=== PATIENT | female | born 1990 | race Caucasian/White ===

== ENCOUNTER 2018-06-16 22:32 | Inpatient (IN) | payer OTHER ==
[2018-06-16] MEDS ORDERED: Acetaminophen 325 MG Tab PO PRN (23:15)
[2018-06-16] MEDS ORDERED: Sodium Chloride 0.9% 10 ML Syringe FLUSH PRN (23:21)
[2018-06-16] MEDS ORDERED: Ondansetron 4 MG/2 ML SDV IVPUSH PRN (23:21)
[2018-06-16] MEDS ORDERED: Ampicillin 2 GM in Sodium Chloride 0.9% 100 ML IV ONE (23:21)
[2018-06-16] MEDS ORDERED: Nalbuphine 20 MG/ML 1 ML Syringe IVPUSH PRN (23:21)
[2018-06-16] MEDS ORDERED: Oxytocin/Lactated Ringers 10 UNIT/1,000 ML BAG IV SCH ×2 (23:30)
[2018-06-17] MEDS: Lactated Ringers 1,000 ML IV SCH ×3 (01:15→07:45)
[2018-06-17] MEDS ORDERED: Ampicillin 1 GM in Sodium Chloride 0.9% 100 ML IV SCH ×2 (03:30→09:30)
[2018-06-17] MEDS ORDERED: ePHEDrine 50 MG/ML SDV IVPUSH PRN (05:38)
[2018-06-17] MEDS ORDERED: diphenhydrAMINE 50 MG/ML SDV IVPUSH PRN (05:38)
[2018-06-17] MEDS ORDERED: fentaNYL 100 MCG/2 ML SDV EPIDUR PRN (05:38)
[2018-06-17] MEDS ORDERED: fentaNYL/Bupivacaine-NS 2 MCG/ML-0.125%/PF 100 ML Bag EP SCH (05:45)
--- NOTE | 2018-06-17 05:47 | PCM.PREANE ---
Preanesthetic Assessment - Procedure Proposed Procedure: janie - Anesthesia/Transfusion/Family Hx Anesthesia History: Prior Anesthesia Without Reaction Family History of Anesthesia Reaction: No Transfusion History: No Prior Transfusion(s) - Review of Systems General: No Symptoms Pulmonary: No Symptoms Cardiovascular: No Symptoms Gastrointestinal: No Symptoms Neurological: No Symptoms Other: Reports: None - Physical Assessment O2 Sat by Pulse Oximetry: 100 Respiratory Rate: 15 Vital Signs: Last Vital Signs Temp 97.8 F 06/16/18 23:21 Pulse 73 06/16/18 23:21 Resp 15 06/16/18 23:21 BP 137/90 06/16/18 23:21 Pulse Ox 100 06/16/18 23:21 Height: 5 ft 9 in Weight: 107.955 kg ASA Class: 2 Mental Status: Alert & Oriented x3 Airway Class: Mallampati = 1 Dentition: Reports: Normal Dentition Thyro-Mental Finger Breadths: 3 Mouth Opening Finger Breadths: 3 ROM/Head Extension: Full Lungs: Clear to Auscultation, Normal Respiratory Effort Cardiovascular: Regular Rate, Regular Rhythm - Lab Values: Laboratory Last Values WBC 11.28 K/mm3 (3.98-10.04) H 06/16/18 23:45 RBC 3.82 M/mm3 (3.98-5.22) L 06/16/18 23:45 Hgb 11.6 gm/L (11.2-15.7) 06/16/18 23:45 Hct 35.5 % (34.1-44.9) 06/16/18 23:45 MCV 92.9 fl (79.4-94.8) 06/16/18 23:45 MCH 30.4 pg (25.6-32.2) 06/16/18 23:45 MCHC 32.7 g/dl (32.2-35.5) 06/16/18 23:45 RDW Std Deviation 43.5 fL (36.4-46.3) 06/16/18 23:45 Plt Count 301 K/mm3 (182-369) 06/16/18 23:45 MPV 9.1 fl (9.4-12.3) L 06/16/18 23:45 Neut % (Auto) 69.4 % (34.0-71.1) 06/16/18 23:45 Lymph % (Auto) 21.5 % (19.3-51.7) 06/16/18 23:45 [place] % (Auto) 8.4 % (4.7-12.5) 06/16/18 23:45 Eos % (Auto) 0.3 (0.7-5.8) L 06/16/18 23:45 Baso % (Auto) 0.2 % (0.1-1.2) 06/16/18 23:45 Neut # (Auto) 7.84 K/mm3 (1.56-6.13) H 06/16/18 23:45 Lymph # (Auto) 2.42 K/mm3 (1.18-3.74) 06/16/18 23:45 [place] # (Auto) 0.95 K/mm3 (0.24-0.36) H 06/16/18 23:45 Eos # (Auto) 0.03 K/mm3 (0.04-0.36) L 06/16/18 23:45 Baso # (Auto) 0.02 K/mm3 (0.01-0.08) 06/16/18 23:45 Sodium 138 mEq/L (136-145) 06/16/18 23:45 Potassium 4.0 mEq/L (3.5-5.1) 06/16/18 23:45 Chloride 104 mEq/L (98-107) 06/16/18 23:45 Carbon Dioxide 23 mEq/L (21-32) 06/16/18 23:45 Anion Gap 15.0 (5-15) 06/16/18 23:45 BUN 16 mg/dL (7-18) 06/16/18 23:45 Creatinine 0.7 mg/dL (0.55-1.02) 06/16/18 23:45 Est Cr Clr Drug Dosing 125.04 mL/min 06/16/18 23:45 Estimated GFR (MDRD) > 60 mL/min (>60) 06/16/18 23:45 BUN/Creatinine Ratio 22.9 (14-18) H 06/16/18 23:45 Glucose 92 mg/dL (74-106) 06/16/18 23:45 Calcium 9.1 mg/dL (8.5-10.1) 06/16/18 23:45 Total Bilirubin 0.2 mg/dL (0.2-1.0) 06/16/18 23:45 AST 13 U/L (15-37) L 06/16/18 23:45 ALT 22 U/L (14-59) 06/16/18 23:45 Alkaline Phosphatase 139 U/L (46-116) H 06/16/18 23:45 Total Protein 6.9 g/dl (6.4-8.2) 06/16/18 23:45 Albumin 2.9 g/dl (3.4-5.0) L 06/16/18 23:45 Globulin 4.0 gm/dL 06/16/18 23:45 Albumin/Globulin Ratio 0.7 (1-2) L 06/16/18 23:45 - Allergies Allergies/Adverse Reactions: Allergies Allergy/AdvReac Type Severity Reaction Status Date / Time No Known Allergies Allergy Verified 10/03/15 22:09 - Blood Blood Available: No - Acknowledgements Anesthesia Type Planned: Epidural Pt an Appropriate Candidate for the Planned Anesthesia: Yes Alternatives and Risks of Anesthesia Discussed w Pt/Guardian: Yes Pt/Guardian Understands and Agrees with Anesthesia Plan: Yes PreAnesthesia Questionnaire HEENT History: Reports: None Cardiovascular History: Reports: Other (See Below) Other Cardiovascular History: Mitral Valve prolapse, mild by history. Per Dr. Mcguire evaluation, the prolapse is so mild as to not be visible. Pt advised that no special care is required for this relative to her , labor or her delivery, per pt's understanding from Dr. Hahn. 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 Neurological History: Reports: Other (See Below) (headaches at start of preg and and near end) - Past Surgical History HEENT Surgical History: Reports: Oral Surgery, Tonsillectomy Cardiovascular Surgical History: Reports: None - History Comment History Comment: vits and tylenol prn - SUBSTANCE USE Smoking Status *Q: Never Smoker Tobacco Use Within Last Twelve Months: No Second Hand Smoke Exposure: No Days Per Week of Alcohol Use: 0 Recreational Drug Use History: No - CURRENT (IN HOUSE) MEDS Current Meds: Current Medications Diphenhydramine HCl (Benadryl) 25 mg IVPUSH Q6H PRN PRN Reason: pruritis Ephedrine Sulfate (Ephedrine Sulfate) 5 mg IVPUSH ASDIRECTED PRN PRN Reason: Hypotension Fentanyl (Sublimaze) 100 mcg EPIDUR Q3H PRN PRN Reason: Pain Fentanyl/Bupivacaine HCl (Txwekusf-Oakdh-Be 2 Mcg/Ml-0.125%) 100 ml EP ASDIRECTED FELIPE Ampicillin Sodium 1 gm/ Sodium (Chloride) 100 mls @ 200 mls/hr IV Q4H FELIPE Last Admin: 06/17/18 05:30 Dose: 200 mls/hr Lactated Ringer's (Ringers, Lactated) 1,000 mls @ 100 mls/hr IV ASDIRECTED FELIPE Last Infusion: 06/17/18 05:20 Dose: 999 mls/hr Oxytocin/Lactated Ringer's (Pitocin In Lr 10 Units/1,000 Ml) 10 unit in 1,000 mls @ 12 mls/hr IV TITRATE FELIPE; Protocol Last Titration: 06/17/18 04:00 Dose: 8 munits/min, 48 mls/hr Oxytocin/Lactated Ringer's (Pitocin In Lr 10 Units/1,000 Ml) 10 unit in 1,000 mls @ 500 mls/hr IV .CONTINUOUS FELIPE Nalbuphine HCl (Nubain) 10 mg IVPUSH Q2H PRN PRN Reason: pain Ondansetron HCl (Zofran) 4 mg IVPUSH Q4H PRN PRN Reason: Nausea/Vomiting Sodium Chloride (Saline Flush) 10 ml FLUSH ASDIRECTED PRN PRN Reason: Keep Vein Open Discontinued Medications Ampicillin Sodium 2 gm/ Sodium (Chloride) 100 mls @ 200 mls/hr IV ONETIME ONE Stop: 06/16/18 23:50 Last Admin: 06/17/18 01:30 Dose: 200 mls/hr
--- NOTE | 2018-06-17 08:20 | PCM.LDHP ---
L&D History of Present Illness - General Date of Service: 06/17/18 Admit Problem/Dx: Patient Status Order with Admit Dx/Problem 06/16/18 23:21 Patient Status [ADT] Routine Admission Diagnosis/Problem Admission Diagnosis/Problem Source of Information: Patient History Limitations: Reports: No Limitations - History of Present Illness Introduction:: Josephine Jones is a 27-year-old 40 weeks 1 day ([facility] 06/16/2018) by early ultrasound who presented with spontaneous rupture membranes at home. She reports that she had a large gush of clear fluid at approximately 9 PM last evening. She denies any significant vaginal bleeding or other discharge. She denies any contractions but was having some occasional cramping when she was traveling from home to the hospital. She reports that she's been feeling good movement. Timing/Duration: Reports: sudden onset (Large gush of fluid at 9 PM on 06/16/2018 ), intermittent (Cramping episodes) Location, : Reports: Lower back, Pelvic Quality: Reports: Ache Severity: Mild Pain Score: 0 Improves with: Reports: None Worsens with: Reports: None Associated Symptoms: Reports: vaginal fluid, large amount. Denies: vaginal bleeding, vaginal discharge Present Illness Comments:: Josephine Jones is a 27-year-old at 40 weeks 1 day ([facility] 06/16/2018) with spontaneous rupture membranes at home. Her has been overall and called complicated. She has had routine care since [address] Hahn. labs Blood type: O+ Antibody screen: Negative First trimester hematocrit/hemoglobin: 40.1/13.9 on 11/23/2017 Platelets: 309 Rubella status: Equivocal Hepatitis B surface antigen: Negative RPR: Negative HIV: Negative Gonorrhea: Negative Chlamydia: Negative Anatomy ultrasound: Grossly normal anatomy ultrasound with initial ultrasound showing posterior with partial versus complete previa, moved to 1.9 cm from cervical os at 1 month later and repeat 1 month after that was at 2.7 cm from the cervical os One hour glucose tolerance test: 108 Second trimester hematocrit/hemoglobin: 36.0/12.1 on 03/13/2018 Platelets: 301 GBS status: Positive Repeat hematocrit and hemoglobin in third trimester: 39.2/12.9 on 06/05/2018 Platelets: 301 complicated by: * GBS positive status, no allergies and should be given antibiotics in labor * Rubella equivocal status and should be offered MMR vaccine after delivery * History of anxiety and depression and not currently on medications, would like to start on medications after delivery * History of mitral valve prolapse with no significant evidence of disease with echocardiogram done in - Related Data Allergies/Adverse Reactions: Allergies Allergy/AdvReac Type Severity Reaction Status Date / Time No Known Allergies Allergy Verified 10/03/15 22:09 Past Medical History HEENT History: Reports: None Cardiovascular History: Reports: Other (See Below) Other Cardiovascular History: Mitral Valve prolapse, mild by history. Per Dr. Mcguire evaluation, the prolapse is so mild as to not be visible. Pt advised that no special care is required for this relative to her , labor or her delivery, per pt's understanding from Dr. Hahn. 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 Neurological History: Reports: Other (See Below) (headaches at start of preg and and near end) Psychiatric History: Reports: Anxiety, Depression - Past Surgical History HEENT Surgical History: Reports: Oral Surgery, Tonsillectomy Cardiovascular Surgical History: Reports: None - History Comment History Comment: vits and tylenol prn Social & Family History - Family History Family Medical History: Noncontributory - Tobacco Use Smoking Status *Q: Never Smoker Second Hand Smoke Exposure: No - Tobacco Core Measures Tobacco Use/Smoking Within Last 30 Days: No Smokeless Tobacco Use in Last 30 Days: No - Caffeine Use Caffeine Use: Reports: Coffee - Alcohol Use Days Per Week of Alcohol Use: 0 - Recreational Drug Use Recreational Drug Use: No - Living Situation & Occupation Living situation: Reports: , with Spouse Occupation: Employed H&P Review of Systems - Review of Systems: Review Of Systems: See Below General: Denies: Fever, Chills HEENT: Denies: Post Nasal Drip, Sinus Congestion, Sore Throat, Visual Changes Pulmonary: Denies: Shortness of Breath, Cough Cardiovascular: Denies: Chest Pain, Palpitations Gastrointestinal: Denies: Abdominal Pain, Constipation, Diarrhea, Nausea, Vomiting Genitourinary: Denies: Dysuria, Frequency, Burning, Pain, Urgency Musculoskeletal: Reports: Back Pain (And hip pain of ) Skin: Denies: Rash, Lesions Psychiatric: Reports: Depression (History of, no active symptoms), Anxiety ( History of, no active symptoms) Neurological: Reports: Headache (Occasional headaches when she is getting minimal sleep) L&D Exam - Exam Exam: See Below - Vital Signs Vital Signs: Last Vital Signs Temp 36.6 C 06/16/18 23:21 Pulse 73 06/16/18 23:21 Resp 15 06/17/18 05:46 BP 137/90 06/16/18 23:21 Pulse Ox 100 06/17/18 05:46 Weight: 107.955 kg - OB Specific Contraction Duration (sec): 60-75 Contraction Frequency (min): 2-5 Contraction Intensity: Moderate Movement: Active Heart Tones: Present Heart Tones per Min: 120 (+15 x 15 accelerations, intermittent early decelerations) Presentation: Vertex Estimated Weight: 7.5-8 pounds by Fabio's - Gonzalez Score Gonzalez Score Cervix Position: Midposition Gonzalez Score Consistency: Soft Gonzalez Score Effacement: >80% (100%) Gonzalez Score Dilation: 3-4 cm (4 cm) Gonzalez Score Infant's Station: -2 Gonzalez Score Total: 9 - Exam General: Alert, Oriented HEENT: Conjunctiva Clear, EOMI Neck: Supple, Trachea Midline Lungs: Clear to Auscultation, Normal Respiratory Effort Cardiovascular: Regular Rate, Regular Rhythm GI/Abdominal Exam: Soft, Non-Tender, No Distention, Other (gravid). No: Guarding, Rigid, Rebound Genitourinary: Normal external exam Extremities: No Pedal Edema Skin: Warm, Dry, Intact Psychiatric: Alert, Normal Affect, Normal Mood - Patient Data Lab Results Last 24 hrs: Laboratory Results - last 24 hr 06/16/18 06/16/18 06/17/18 Range/Units 23:45 23:45 07:20 WBC 11.28 H (3.98-10.04) K/mm3 RBC 3.82 L (3.98-5.22) M/mm3 Hgb 11.6 (11.2-15.7) gm/L Hct 35.5 (34.1-44.9) % MCV 92.9 (79.4-94.8) fl MCH 30.4 (25.6-32.2) pg MCHC 32.7 (32.2-35.5) g/dl RDW Std Deviation 43.5 (36.4-46.3) fL Plt Count 301 (182-369) K/mm3 MPV 9.1 L (9.4-12.3) fl Neut % (Auto) 69.4 (34.0-71.1) % Lymph % (Auto) 21.5 (19.3-51.7) % [place] % (Auto) 8.4 (4.7-12.5) % Eos % (Auto) 0.3 L (0.7-5.8) Baso % (Auto) 0.2 (0.1-1.2) % Neut # (Auto) 7.84 H (1.56-6.13) K/mm3 Lymph # (Auto) 2.42 (1.18-3.74) K/mm3 [place] # (Auto) 0.95 H (0.24-0.36) K/mm3 Eos # (Auto) 0.03 L (0.04-0.36) K/mm3 Baso # (Auto) 0.02 (0.01-0.08) K/mm3 Sodium 138 (136-145) mEq/L Potassium 4.0 (3.5-5.1) mEq/L Chloride 104 (98-107) mEq/L Carbon Dioxide 23 (21-32) mEq/L Anion Gap 15.0 (5-15) BUN 16 (7-18) mg/dL Creatinine 0.7 (0.55-1.02) mg/dL Est Cr Clr Drug Dosing 125.04 mL/min Estimated GFR (MDRD) > 60 (>60) mL/min BUN/Creatinine Ratio 22.9 H (14-18) Glucose 92 (74-106) mg/dL Calcium 9.1 (8.5-10.1) mg/dL Total Bilirubin 0.2 (0.2-1.0) mg/dL AST 13 L (15-37) U/L ALT 22 (14-59) U/L Alkaline Phosphatase 139 H (46-116) U/L Total Protein 6.9 (6.4-8.2) g/dl Albumin 2.9 L (3.4-5.0) g/dl Globulin 4.0 gm/dL Albumin/Globulin Ratio 0.7 L (1-2) Ur Random Creatinine 83.7 (30.0-125.0) mg/dL U Random Total Protein 17.9 H (0.0-11.8) mg/dL Protein/Creatinin Ratio 213.9 H (0-149) mg/g Result Diagrams: 06/16/18 23:45 06/16/18 23:45 - Problem List (1) 40 weeks gestation of SNOMED Code(s): 72798020 ICD Code: Z3A.40 - 40 WEEKS GESTATION OF Status: Acute Current Visit: Yes (2) GBS (group B Streptococcus carrier), +RV culture, currently SNOMED Code(s): 5529217981468, 228522321, 7478615913231 ICD Code: O99.820 - STREPTOCOCCUS B CARRIER STATE COMPLICATING Status: Acute Current Visit: Yes (3) Rubella non-immune status, antepartum SNOMED Code(s): 927985341 ICD Code: O99.89 - OTH DISEASES AND CONDITIONS COMPL PREG/CHLDBRTH; Z28.3 - UNDERIMMUNIZATION STATUS Status: Acute Current Visit: Yes (4) Anxiety SNOMED Code(s): 08465251 ICD Code: F41.9 - ANXIETY DISORDER, UNSPECIFIED Status: Acute Current Visit: Yes (5) Depression SNOMED Code(s): 79326332 ICD Code: F32.9 - MAJOR DEPRESSIVE DISORDER, SINGLE EPISODE, UNSPECIFIED Status: Acute Current Visit: Yes (6) Mitral valve prolapse of mother during SNOMED Code(s): 755701411 ICD Code: O99.419 - DISEASES OF THE CIRC SYS COMP , UNSP TRIMESTER; I34.1 - NONRHEUMATIC MITRAL (VALVE) PROLAPSE Status: Acute Current Visit: Yes Problem List Initiated/Reviewed/Updated: Yes Orders Last 24hrs: Active Orders 24 hr Category Date Time Status Patient Status [ADT] Routine ADT 06/16/18 23:21 Active Activity as Tolerated [RC] PFP Care 06/16/18 23:21 Active Communication Order [RC] ASDIRECTED Care 06/16/18 23:21 Active Heart Tones [RC] ASDIRECTED Care 06/16/18 23:25 Active Notify Provider [RC] ASDIRECTED Care 06/17/18 05:38 Active Notify Provider [RC] PFP Care 06/16/18 23:21 Active Notify Provider [RC] PRN Care 06/16/18 23:21 Active Peripheral IV Care [RC] . DIRECTED Care 06/16/18 23:25 Active Vital Signs [RC] 09,15,21,03 Care 06/16/18 23:21 Active Regular Diet [DIET] Diet 06/17/18 Breakfast Active RAPID PLASMA REAGIN,RPR [CHEM] Routine Lab 06/16/18 23:45 Received Acetaminophen [Tylenol] Med 06/16/18 23:15 Active 650 mg PO Q4H PRN Ampicillin 1 gm Med 06/17/18 09:30 Active Sodium Chloride 0.9% [Normal Saline] 100 ml IV Q4H Lactated Ringers [Ringers, Lactated] 1,000 ml Med 06/16/18 23:30 Active IV ASDIRECTED Nalbuphine [Nubain] Med 06/16/18 23:21 Active 10 mg IVPUSH Q2H PRN Ondansetron [Zofran] Med 06/16/18 23:21 Active 4 mg IVPUSH Q4H PRN Oxytocin/Lactated Ringers [Pitocin in LR 10 Units/1,000 Med 06/16/18 23:30 Active ML] 10 unit in 1,000 ml IV .CONTINUOUS Oxytocin/Lactated Ringers [Pitocin in LR 10 Units/1,000 Med 06/16/18 23:30 Active ML] 10 unit in 1,000 ml IV TITRATE Sodium Chloride 0.9% [Saline Flush] Med 06/16/18 23:21 Active 10 ml FLUSH ASDIRECTED PRN diphenhydrAMINE [Benadryl] Med 06/17/18 05:38 Active 25 mg IVPUSH Q6H PRN ePHEDrine [ePHEDrine sulfate] Med 06/17/18 05:38 Active 5 mg IVPUSH ASDIRECTED PRN fentaNYL [Sublimaze] Med 06/17/18 05:38 Active 100 mcg EPIDUR Q3H PRN fentaNYL/Bupivacaine/NS/PF [lyqtiPIH-[id number]-VK 2 MCG/ML- Med 06/17/18 05:45 Active 0.125%] 100 ml EP ASDIRECTED Electronic Heart Tones Ext w TOCO [WOMSER] Oth 06/16/18 23:21 Ordered Routine Electronic Heart Tones Internal [WOMSER] Per Unit Oth 06/16/18 23:21 Ordered Routine Peripheral IV Insertion Adult [OM.PC] Routine Oth 06/16/18 23:21 Ordered Resuscitation Status Routine Resus Stat 06/16/18 23:21 Ordered Medication Orders Acetaminophen (Tylenol) 650 mg PO Q4H PRN PRN Reason: Pain (mild 1-3) Last Admin: 06/17/18 06:28 Dose: 650 mg Diphenhydramine HCl (Benadryl) 25 mg IVPUSH Q6H PRN PRN Reason: pruritis Ephedrine Sulfate (Ephedrine Sulfate) 5 mg IVPUSH ASDIRECTED PRN PRN Reason: Hypotension Fentanyl (Sublimaze) 100 mcg EPIDUR Q3H PRN PRN Reason: Pain Last Admin: 06/17/18 05:48 Dose: 100 mcg Fentanyl/Bupivacaine HCl (Nkbbkfpy-Kkmeb-Ke 2 Mcg/Ml-0.125%) 100 ml EP ASDIRECTED FELIPE Last Admin: 06/17/18 05:48 Dose: 100 ml Lactated Ringer's (Ringers, Lactated) 1,000 mls @ 100 mls/hr IV ASDIRECTED FELIPE Last Admin: 06/17/18 07:45 Dose: 100 mls/hr Infusion: 06/17/18 06:57 Dose: 999 mls/hr Admin: 06/17/18 05:56 Dose: 999 mls/hr Infusion: 06/17/18 05:56 Dose: 999 mls/hr Infusion: 06/17/18 05:20 Dose: 999 mls/hr Admin: 06/17/18 01:15 Dose: 100 mls/hr Oxytocin/Lactated Ringer's (Pitocin In Lr 10 Units/1,000 Ml) 10 unit in 1,000 mls @ 12 mls/hr IV TITRATE FELIPE; Protocol Last Titration: 06/17/18 07:35 Dose: 10 munits/min, 60 mls/hr Titration: 06/17/18 04:00 Dose: 8 munits/min, 48 mls/hr Titration: 06/17/18 03:21 Dose: 6 munits/min, 36 mls/hr Titration: 06/17/18 02:42 Dose: 4 munits/min, 24 mls/hr Admin: 06/17/18 02:08 Dose: 2 munits/min, 12 mls/hr Oxytocin/Lactated Ringer's (Pitocin In Lr 10 Units/1,000 Ml) 10 unit in 1,000 mls @ 500 mls/hr IV .CONTINUOUS FELIPE Ampicillin Sodium 1 gm/ Sodium (Chloride) 100 mls @ 200 mls/hr IV Q4H FELIPE Nalbuphine HCl (Nubain) 10 mg IVPUSH Q2H PRN PRN Reason: pain Ondansetron HCl (Zofran) 4 mg IVPUSH Q4H PRN PRN Reason: Nausea/Vomiting Sodium Chloride (Saline Flush) 10 ml FLUSH ASDIRECTED PRN PRN Reason: Keep Vein Open Assessment/Plan Comment:: Refer to observation for spontaneous rupture of membranes Continue Pitocin for augmentation of labor Continuous monitoring Place IV and have Lactated Ringer's at 125 ml/hr May have small amounts of regular diet Activity as tolerated Patient with epidural placed this morning Plans to breast-feed after delivery Patient on ampicillin 2 g on admission and given 1 g every 4 hours after for GBS prophylaxis Anticipate vaginal delivery unless otherwise indicated Markos Sahu M.D. 9:00 AM 06/17/2018
--- NOTE | 2018-06-17 09:05 | PCM.DEL ---
L & D Note - General Info Date of Service: 06/17/18 Mother's Due Date: 06/16/18 - Delivery Note Labor: Augmented by Oxytocin Delivery Outcome: Livebirth Infant Delivery Method: Spontaneous Vaginal Delivery-Single Presentation: Left Occiput Anterior (CORAL) Nuchal Cord: None Anesthesia Type: Epidural Amniotic Fluid Description: Clear Episiotomy Type: None Laceration: 2nd Degree, Perineal (midline, repaired) Suture type: Vicryl Suture size: 3-0 Placenta: Intact, Spontaneous Cord: 3 Vessels Estimated Blood Loss: 200 Resuscitation Needed: No [place]: Bulb Syringe, Stimulated, Warmed, [place] Used Provider: Markos Sahu Score 1 min: 8 Score 5 min: 9 Delivery Comments (Free Text/Narrative):: Stage I: Josephine Jones was admitted for spontaneous rupture membranes with clear fluid. On admission her cervix was dilated to 1 cm. She was GBS positive and was started on ampicillin for GBS prophylaxis and received a total of 2 doses prior to delivery. She was not having any contractions on admission and was started on Pitocin for augmentation of labor. She was given an epidural for anesthesia. In the morning of hospital day #2 her cervix was examined and she was 4 cm and continued on Pitocin for augmentation of labor. She quickly progressed from 4 cm to complete Stage II: On 06/17/2018 she had a normal vaginal delivery of a live female at 0832. Apgars of 8 & 9. Weight of 3120 g (6 lbs 14 oz). Length of 20.5 inches. There was no nuchal cord. Infant was delivered in CORAL position. The cord was doubly clamped and cut by father of the . Infant was placed on mother's abdomen. Stage III: She had a spontaneous delivery of an intact placenta in [place] presentation. Three vessel cord. She was given pitocin and fundal massage. She had a second-degree midline perineal laceration is repaired with 3-0 Vicryl. Mom and baby were stable to recovery. EBL of 200 mL. Markos Sahu MD 9:04 AM 06/17/2018 - General Info Date of Service: 06/17/18 - Patient Data Vitals - Most Recent: Last Vital Signs Temp 36.6 C 06/16/18 23:21 Pulse 73 06/16/18 23:21 Resp 15 06/17/18 05:46 BP 137/90 06/16/18 23:21 Pulse Ox 100 06/17/18 05:46 Weight - Most Recent: 107.955 kg I&O - Last 24 Hours: Intake & Output 06/16/18 06/17/18 06/17/18 22:59 06:59 14:59 Intake Total 2350 Output Total 400 Balance 1950 Lab Results Last 24 Hours: Laboratory Results - last 24 hr 06/16/18 06/16/18 06/17/18 Range/Units 23:45 23:45 07:20 WBC 11.28 H (3.98-10.04) K/mm3 RBC 3.82 L (3.98-5.22) M/mm3 Hgb 11.6 (11.2-15.7) gm/L Hct 35.5 (34.1-44.9) % MCV 92.9 (79.4-94.8) fl MCH 30.4 (25.6-32.2) pg MCHC 32.7 (32.2-35.5) g/dl RDW Std Deviation 43.5 (36.4-46.3) fL Plt Count 301 (182-369) K/mm3 MPV 9.1 L (9.4-12.3) fl Neut % (Auto) 69.4 (34.0-71.1) % Lymph % (Auto) 21.5 (19.3-51.7) % [place] % (Auto) 8.4 (4.7-12.5) % Eos % (Auto) 0.3 L (0.7-5.8) Baso % (Auto) 0.2 (0.1-1.2) % Neut # (Auto) 7.84 H (1.56-6.13) K/mm3 Lymph # (Auto) 2.42 (1.18-3.74) K/mm3 [place] # (Auto) 0.95 H (0.24-0.36) K/mm3 Eos # (Auto) 0.03 L (0.04-0.36) K/mm3 Baso # (Auto) 0.02 (0.01-0.08) K/mm3 Sodium 138 (136-145) mEq/L Potassium 4.0 (3.5-5.1) mEq/L Chloride 104 (98-107) mEq/L Carbon Dioxide 23 (21-32) mEq/L Anion Gap 15.0 (5-15) BUN 16 (7-18) mg/dL Creatinine 0.7 (0.55-1.02) mg/dL Est Cr Clr Drug Dosing 125.04 mL/min Estimated GFR (MDRD) > 60 (>60) mL/min BUN/Creatinine Ratio 22.9 H (14-18) Glucose 92 (74-106) mg/dL Calcium 9.1 (8.5-10.1) mg/dL Total Bilirubin 0.2 (0.2-1.0) mg/dL AST 13 L (15-37) U/L ALT 22 (14-59) U/L Alkaline Phosphatase 139 H (46-116) U/L Total Protein 6.9 (6.4-8.2) g/dl Albumin 2.9 L (3.4-5.0) g/dl Globulin 4.0 gm/dL Albumin/Globulin Ratio 0.7 L (1-2) Ur Random Creatinine 83.7 (30.0-125.0) mg/dL U Random Total Protein 17.9 H (0.0-11.8) mg/dL Protein/Creatinin Ratio 213.9 H (0-149) mg/g Med Orders - Current: Current Medications Acetaminophen (Tylenol) 650 mg PO Q4H PRN PRN Reason: Pain (mild 1-3) Last Admin: 06/17/18 06:28 Dose: 650 mg Diphenhydramine HCl (Benadryl) 25 mg IVPUSH Q6H PRN PRN Reason: pruritis Ephedrine Sulfate (Ephedrine Sulfate) 5 mg IVPUSH ASDIRECTED PRN PRN Reason: Hypotension Fentanyl (Sublimaze) 100 mcg EPIDUR Q3H PRN PRN Reason: Pain Last Admin: 06/17/18 05:48 Dose: 100 mcg Fentanyl/Bupivacaine HCl (Ngcoyeoz-Lvehx-Xs 2 Mcg/Ml-0.125%) 100 ml EP ASDIRECTED [facility] Last Admin: 06/17/18 05:48 Dose: 100 ml Lactated Ringer's (Ringers, Lactated) 1,000 mls @ 100 mls/hr IV ASDIRECTED [facility] Last Admin: 06/17/18 07:45 Dose: 100 mls/hr Oxytocin/Lactated Ringer's (Pitocin In Lr 10 Units/1,000 Ml) 10 unit in 1,000 mls @ 12 mls/hr IV TITRATE FELIPE; Protocol Last Titration: 06/17/18 08:34 Dose: 500 mls/hr Oxytocin/Lactated Ringer's (Pitocin In Lr 10 Units/1,000 Ml) 10 unit in 1,000 mls @ 500 mls/hr IV .CONTINUOUS FELIPE Ampicillin Sodium 1 gm/ Sodium (Chloride) 100 mls @ 200 mls/hr IV Q4H FELIPE Nalbuphine HCl (Nubain) 10 mg IVPUSH Q2H PRN PRN Reason: pain Ondansetron HCl (Zofran) 4 mg IVPUSH Q4H PRN PRN Reason: Nausea/Vomiting Sodium Chloride (Saline Flush) 10 ml FLUSH ASDIRECTED PRN PRN Reason: Keep Vein Open Discontinued Medications Ampicillin Sodium 2 gm/ Sodium (Chloride) 100 mls @ 200 mls/hr IV ONETIME ONE Stop: 06/16/18 23:50 Last Admin: 06/17/18 01:30 Dose: 200 mls/hr Ampicillin Sodium 1 gm/ Sodium (Chloride) 100 mls @ 200 mls/hr IV Q4H FELIPE Last Admin: 06/17/18 05:30 Dose: 200 mls/hr - Problem List & Annotations (1) 40 weeks gestation of SNOMED Code(s): 56814602 Code(s): Z3A.40 - 40 WEEKS GESTATION OF Status: Acute Current Visit: Yes (2) GBS (group B Streptococcus carrier), +RV culture, currently SNOMED Code(s): 0509685306447, 931175495, 5029139567577 Code(s): O99.820 - STREPTOCOCCUS B CARRIER STATE COMPLICATING Status: Acute Current Visit: Yes (3) Rubella non-immune status, antepartum SNOMED Code(s): 531459671 Code(s): O99.89 - OTH DISEASES AND CONDITIONS COMPL PREG/CHLDBRTH; Z28.3 - UNDERIMMUNIZATION STATUS Status: Acute Current Visit: Yes (4) Anxiety SNOMED Code(s): 20741769 Code(s): F41.9 - ANXIETY DISORDER, UNSPECIFIED Status: Acute Current Visit: Yes (5) Depression SNOMED Code(s): 81726063 Code(s): F32.9 - MAJOR DEPRESSIVE DISORDER, SINGLE EPISODE, UNSPECIFIED Status: Acute Current Visit: Yes (6) Mitral valve prolapse of mother during SNOMED Code(s): 124250772 Code(s): O99.419 - DISEASES OF THE CIRC SYS COMP , UNSP TRIMESTER; I34.1 - NONRHEUMATIC MITRAL (VALVE) PROLAPSE Status: Acute Current Visit: Yes (7) Vaginal delivery SNOMED Code(s): 075884089 Code(s): O80 - ENCOUNTER FOR FULL-TERM UNCOMPLICATED DELIVERY Status: Acute Current Visit: Yes (8) Second degree perineal laceration during delivery SNOMED Code(s): 6618668 Code(s): O70.1 - SECOND DEGREE PERINEAL LACERATION DURING DELIVERY Status: Acute Current Visit: Yes - Problem List Review Problem List Initiated/Reviewed/Updated: Yes - My Orders Last 24 Hours: My Active Orders 06/16/18 23:15 Acetaminophen [Tylenol] 650 mg PO Q4H PRN 06/16/18 23:21 Patient Status [ADT] Routine Activity as Tolerated [RC] PFP Communication Order [RC] ASDIRECTED Notify Provider [RC] PFP Notify Provider [RC] PRN Vital Signs [RC] 09,15,21,03 Nalbuphine [Nubain] 10 mg IVPUSH Q2H PRN Ondansetron [Zofran] 4 mg IVPUSH Q4H PRN Sodium Chloride 0.9% [Saline Flush] 10 ml FLUSH ASDIRECTED PRN Electronic Heart Tones Ext w TOCO [WOMSER] Routine Electronic Heart Tones Internal [WOMSER] Per Unit Routine Peripheral IV Insertion Adult [OM.PC] Routine Resuscitation Status Routine 06/16/18 23:25 Heart Tones [RC] ASDIRECTED Peripheral IV Care [RC] . DIRECTED 06/16/18 23:30 Lactated Ringers [Ringers, Lactated] 1,000 ml IV ASDIRECTED Oxytocin/Lactated Ringers [Pitocin in LR 10 Units/1,000 ML] 10 unit in 1,000 ml IV .CONTINUOUS Oxytocin/Lactated Ringers [Pitocin in LR 10 Units/1,000 ML] 10 unit in 1,000 ml IV TITRATE 06/16/18 23:45 RAPID PLASMA REAGIN,RPR [CHEM] Routine 06/17/18 08:52 Patient Status Manage Transfer [TRANSFER] Routine 06/17/18 09:30 Ampicillin 1 gm Sodium Chloride 0.9% [Normal Saline] 100 ml IV Q4H 06/17/18 Breakfast Regular Diet [DIET] - Plan Plan:: Admit to inpatient following normal spontaneous vaginal delivery Continue Pitocin per unit protocol following delivery of placenta and lactated Ringer's until tolerating regular diet Regular diet Vitals per unit routine Ibuprofen and Tylenol for pain control Assist with breast-feeding as needed Continue to monitor lochia Anticipate discharge home on day #1 Markos Sahu MD 9:04 AM 06/17/2018
[2018-06-17] MEDS ORDERED: Hydrocortisone Acetate 25 MG Supp RECTAL PRN (09:23)
[2018-06-17] MEDS ORDERED: Measles, Mumps & Rubella Vaccine 0.5 ML SDV SUBCUT ONE (09:23)
[2018-06-17] MEDS ORDERED: Oxytocin/Lactated Ringers 10 UNIT/1,000 ML BAG IV SCH (09:23)
[2018-06-17] MEDS ORDERED: Docusate Sodium 100 MG Cap PO PRN (09:23)
[2018-06-17] MEDS ORDERED: Benzocaine/Menthol 20%-0.5% Spray 56 GM Canister TOP PRN (09:23)
[2018-06-17] MEDS ORDERED: Acetaminophen 325 MG Tab PO PRN (09:23)
[2018-06-17] MEDS ORDERED: Magnesium Hydroxide 400 MG/5 ML Susp 30 ML Cup PO PRN (09:23)
[2018-06-17] MEDS ORDERED: Lanolin 100% Cream 7 GM Tube TOP PRN (09:23)
[2018-06-17] MEDS ORDERED: Witch Hazel Medicated Pads 100/Jar TOP PRN (09:23)
[2018-06-17] MEDS: Prenatal Multivitamin with Calcium/Folic Acid/Iron Tab PO SCH (09:55)
[2018-06-17] MEDS: Ibuprofen 600 MG Tab PO PRN ×2 (12:48→19:46)
--- NOTE | 2018-06-17 19:22 | PCM48HPAN ---
Post Anesthesia Note - EVALUATION WITHIN 48HRS OF ANESTHETIC Vital Signs in Normal Range: Yes Patient Participated in Evaluation: Yes Respiratory Function Stable: Yes Airway Patent: Yes Cardiovascular Function Stable: Yes Hydration Status Stable: Yes Pain Control Satisfactory: Yes Nausea and Vomiting Control Satisfactory: Yes Mental Status Recovered: Yes Pulse Rate: 78 Resp Rate: 17 Temperature: 98.2 F Blood Pressure: 117/63
[2018-06-17] MEDS ORDERED: Bupivacaine 0.25% 10 ML SDV ONE (22:00)
[2018-06-17] MEDS ORDERED: Lidocaine 1.5% with EPINEPHrine 1:200,000 5 ML Amp ONE (22:00)
[2018-06-18] MEDS: Ibuprofen 600 MG Tab PO PRN ×2 (01:45→08:48)
[2018-06-18] MEDS ORDERED: Measles, Mumps & Rubella Vaccine 0.5 ML SDV SUBCUT ONE (08:36)
[2018-06-18] MEDS: Prenatal Multivitamin with Calcium/Folic Acid/Iron Tab PO SCH (08:48)
--- NOTE | 2018-06-18 09:03 | PCM.SN ---
- Free Text/Narrative Note: Post Progress Note PPD # 1 Subjective: Doing well overall. Ambulating without difficulty. Lochia minimal. Voiding without difficulty. Tolerating regular diet without nausea or vomiting. Pain controlled with oral medications. Breast-feeding with minimal difficulty. Objective: Vitals: Vital Signs - 24 hr 06/17/18 06/17/18 06/17/18 09:30 10:00 10:30 Temperature Pulse, 68 63 69 Peripheral Respiratory Rate Blood Pressure 106/60 111/76 104/58 L O2 Sat by Pulse Oximetry 06/17/18 06/17/18 06/17/18 11:00 11:30 15:19 Temperature 36.8 C Pulse, 76 74 78 Peripheral Respiratory 17 Rate Blood Pressure 118/70 110/65 117/63 O2 Sat by Pulse 98 Oximetry 06/17/18 06/17/18 06/18/18 19:22 19:50 04:11 Temperature 36.8 C 36.8 C 36.5 C Pulse, 78 74 65 Peripheral Respiratory 17 14 14 Rate Blood Pressure 117/63 131/87 121/77 O2 Sat by Pulse 99 100 Oximetry Physical Exam General: Alert and oriented, no acute distress Lungs: Clear to auscultation bilaterally Heart: Regular rate and rhythm Abdomen: Soft, minimal appropriate tenderness, non-distended, fundus midline, nontender, and 1 fingerbreadth below the umbilicus Extremities: Trace edema in bilateral lower extremities to mid shins Laboratory Results - last 24 hr 06/16/18 Range/Units 23:45 RPR Non-reactive (NONREACTIVE) ASSESSMENT: 27-year-old female 012 s/p normal vaginal delivery PPD #1, complicated by GBS positive and received 2 doses of ampicillin in labor, rubella equivocal, history of anxiety and depression, and history of mitral valve prolapse without significant evidence of disease PLAN: Doing well Breast-feeding with minimal difficulty. Assist as needed Lochia minimal. Continue to monitor for appropriate lochia. Continue routine care MMR vaccine prior to discharge for rubella equivocal status Anticipate discharge home today Markos Sahu MD 9:02 AM 06/18/2018
--- NOTE | 2018-06-18 09:12 | PCM.DCSUM1 ---
Discharge Summary - Hospital Course Free Text/Narrative:: - General Info Date of Service: 06/17/18 Mother's Due Date: 06/16/18 - Delivery Note Labor: Augmented by Oxytocin Delivery Outcome: Livebirth Delivery Method: Spontaneous Vaginal Delivery-Single Presentation: Left Occiput Anterior (CORAL) Nuchal Cord: None Anesthesia Type: Epidural Amniotic Fluid Description: Clear Episiotomy Type: None Laceration: 2nd Degree, Perineal (midline, repaired) Suture type: Vicryl Suture size: 3-0 Placenta: Intact, Spontaneous Cord: 3 Vessels Estimated Blood Loss: 200 Resuscitation Needed: No [place]: Bulb Syringe, Stimulated, Warmed, [place] Used Provider: Markos Sahu Score 1 min: 8 Score 5 min: 9 Delivery Comments (Free Text/Narrative):: Stage I: Josephine Jones was admitted for spontaneous rupture membranes with clear fluid. On admission her cervix was dilated to 1 cm. She was GBS positive and was started on ampicillin for GBS prophylaxis and received a total of 2 doses prior to delivery. She was not having any contractions on admission and was started on Pitocin for augmentation of labor. She was given an epidural for anesthesia. In the morning of hospital day #2 her cervix was examined and she was 4 cm and continued on Pitocin for augmentation of labor. She quickly progressed from 4 cm to complete Stage II: On 06/17/2018 she had a normal vaginal delivery of a live female infant at 0832. Apgars of 8 & 9. Weight of 3120 g (6 lbs 14 oz). Length of 20.5 inches. There was no nuchal cord. Infant was delivered in CORAL position. The cord was doubly clamped and cut by father of the infant. Infant was placed on mother's abdomen. Stage III: She had a spontaneous delivery of an intact placenta in [place] presentation. Three vessel cord. She was given pitocin and fundal massage. She had a second-degree midline perineal laceration is repaired with 3-0 Vicryl. Mom and baby were stable to recovery. EBL of 200 mL. HPI Initial Comments: - General Info Date of Service: 06/17/18 Mother's Due Date: 06/16/18 - Delivery Note Labor: Augmented by Oxytocin Delivery Outcome: Livebirth Infant Delivery Method: Spontaneous Vaginal Delivery-Single Presentation: Left Occiput Anterior (CORAL) Nuchal Cord: None Anesthesia Type: Epidural Amniotic Fluid Description: Clear Episiotomy Type: None Laceration: 2nd Degree, Perineal (midline, repaired) Suture type: Vicryl Suture size: 3-0 Placenta: Intact, Spontaneous Cord: 3 Vessels Estimated Blood Loss: 200 Resuscitation Needed: No [place]: Bulb Syringe, Stimulated, Warmed, [place] Used Provider: Markos Sahu Score 1 min: 8 Score 5 min: 9 Delivery Comments (Free Text/Narrative):: Stage I: Josephine Jones was admitted for spontaneous rupture membranes with clear fluid. On admission her cervix was dilated to 1 cm. She was GBS positive and was started on ampicillin for GBS prophylaxis and received a total of 2 doses prior to delivery. She was not having any contractions on admission and was started on Pitocin for augmentation of labor. She was given an epidural for anesthesia. In the morning of hospital day #2 her cervix was examined and she was 4 cm and continued on Pitocin for augmentation of labor. She quickly progressed from 4 cm to complete Stage II: On 06/17/2018 she had a normal vaginal delivery of a live female infant at 0832. Apgars of 8 & 9. Weight of 3120 g (6 lbs 14 oz). Length of 20.5 inches. There was no nuchal cord. was delivered in CORAL position. The cord was doubly clamped and cut by father of the . was placed on mother's abdomen. Stage III: She had a spontaneous delivery of an intact placenta in [place] presentation. Three vessel cord. She was given pitocin and fundal massage. She had a second-degree midline perineal laceration is repaired with 3-0 Vicryl. Mom and baby were stable to recovery. EBL of 200 mL. Brief History: - General Info. Date of Service: 06/17/18. Mother's Due Date: 06/16/18. - Delivery Note. Labor: Augmented by Oxytocin. Delivery Outcome: Livebirth. Delivery Method: Spontaneous Vaginal Delivery-Single. Presentation: Left Occiput Anterior (CORAL). Nuchal Cord: None. Anesthesia Type : Epidural. Amniotic Fluid Description: Clear. Episiotomy Type: None. Laceration: 2nd Degree, Perineal (midline, repaired). Suture type: Vicryl. Suture size: 3-0. Placenta: Intact, Spontaneous. Cord: 3 Vessels. Estimated Blood Loss: 200. Resuscitation Needed: No. [place]: Bulb Syringe, Stimulated, Warmed, [place] Used. Provider: Markos Sahu. Score 1 min: 8. Score 5 min: 9. Delivery Comments (Free Text/Narrative):: Stage I: Josephine Jones was admitted for spontaneous rupture membranes with clear fluid. On admission her cervix was dilated to 1 cm. She was GBS positive and was started on ampicillin for GBS prophylaxis and received a total of 2 doses prior to delivery. She was not having any contractions on admission and was started on Pitocin for augmentation of labor. She was given an epidural for anesthesia. In the morning of hospital day #2 her cervix was examined and she was 4 cm and continued on Pitocin for augmentation of labor. She quickly progressed from 4 cm to complete. Stage II: On 06/17/2018 she had a normal vaginal delivery of a live female infant at 0832. Apgars of 8 & 9. Weight of 3120 g (6 lbs 14 oz). Length of 20.5 inches. There was no nuchal cord. Infant was delivered in CORAL position. The cord was doubly clamped and cut by father of the infant. Infant was placed on mother's abdomen. Stage III: She had a spontaneous delivery of an intact placenta in [place] presentation. Three vessel cord. She was given pitocin and fundal massage. She had a second-degree midline perineal laceration is repaired with 3-0 Vicryl. Mom and baby were stable to recovery. EBL of 200 mL. Diagnosis: Stroke: No - Discharge Data Discharge Date: 06/18/18 Discharge Disposition: Home, Self-Care 01 Condition: Good - Discharge Diagnosis/Problem(s) (1) 40 weeks gestation of SNOMED Code(s): 55932563 ICD Code: Z3A.40 - 40 WEEKS GESTATION OF Status: Acute Current Visit: Yes (2) GBS (group B Streptococcus carrier), +RV culture, currently SNOMED Code(s): 3925130589819, 674323109, 9502095956537 ICD Code: O99.820 - STREPTOCOCCUS B CARRIER STATE COMPLICATING Status: Acute Current Visit: Yes (3) Rubella non-immune status, antepartum SNOMED Code(s): 692880615 ICD Code: O99.89 - OTH DISEASES AND CONDITIONS COMPL PREG/CHLDBRTH; Z28.3 - UNDERIMMUNIZATION STATUS Status: Acute Current Visit: Yes (4) Anxiety SNOMED Code(s): 09715202 ICD Code: F41.9 - ANXIETY DISORDER, UNSPECIFIED Status: Acute Current Visit: Yes (5) Depression SNOMED Code(s): 68483585 ICD Code: F32.9 - MAJOR DEPRESSIVE DISORDER, SINGLE EPISODE, UNSPECIFIED Status: Acute Current Visit: Yes (6) Mitral valve prolapse of mother during SNOMED Code(s): 645877592 ICD Code: O99.419 - DISEASES OF THE CIRC SYS COMP , UNSP TRIMESTER; I34.1 - NONRHEUMATIC MITRAL (VALVE) PROLAPSE Status: Acute Current Visit: Yes (7) Vaginal delivery SNOMED Code(s): 109326501 ICD Code: O80 - ENCOUNTER FOR FULL-TERM UNCOMPLICATED DELIVERY Status: Acute Current Visit: Yes (8) Second degree perineal laceration during delivery SNOMED Code(s): 2011691 ICD Code: O70.1 - SECOND DEGREE PERINEAL LACERATION DURING DELIVERY Status : Acute Current Visit: Yes - Patient Summary/Data Complications: None Consults: None Hospital Course: Josephine Jones was admitted for spontaneous rupture of membranes. She had spontaneous rupture of membranes at home with clear fluid. On admission her cervix was dilated to 1 cm. She was GBS positive and was started on ampicillin. She received a total of 2 doses of ampicillin prior to delivery. She was given pitocin for augmentation of labor with not having contractions after spontaneous rupture membranes. She was given an epidural for anesthesia. She had changed from 1 to 4 cm overnight but then quickly went to complete the morning of hospital day #2. She progressed to complete and began pushing. On 06/17/2018 she had a normal vaginal delivery of a live female infant at 0832. Apgars of 8 and 9. Weight of 3120 g (6 lbs. 14 oz.). Her course was uneventful. Her pain was well controlled and she had minimal lochia. She was ambulating, tolerating a regular diet and voiding normally. She was breast- feeding with minimal difficulty. She was afebrile and her hematocrit was 35.5 on admission. She desired to be discharged home on the morning of PPD #1. Her blood type is O+. - Patient Instructions Diet: Regular Diet as Tolerated Activity: Apply Ice, As Tolerated Activity, Other: Nothing in the vagina for 6 weeks Driving: May Drive Today Showering/Bathing: May Shower Notify Provider of: Fever, Increased Pain, Swelling and Redness, Drainage, Nausea and/or Vomiting Other/Special Instructions: Please contact your physician's office if you have heavy vaginal bleeding enough to soak a pad in less than an hour for several hours. Monitor for any signs of an infection in the breasts with severe pain or redness of the breast. - Discharge Plan *PRESCRIPTION DRUG MONITORING PROGRAM REVIEWED*: Not Applicable *COPY OF PRESCRIPTION DRUG MONITORING REPORT IN PATIENT MARY: Not Applicable Home Medications: Home Meds Acetaminophen [Tylenol] 650 mg PO Q6H PRN tablet 06/18/18 [Rx] Benzocaine/Menthol [Dermoplast Pain Relief [place]] 1 spray TOP ASDIRECTED PRN canister 06/18/18 [Rx] Docusate Sodium [Colace] 100 mg PO BID PRN cap 06/18/18 [Rx] Hydrocortisone Acetate [Anucort-HC] 25 mg RECTAL BID PRN supp 06/18/18 [Rx] Ibuprofen [Motrin] 600 mg PO Q6H PRN tablet 06/18/18 [Rx] Lanolin [Lansinoh HPA] 1 applic TOP ASDIRECTED PRN tube 06/18/18 [Rx] Vit with Ca/FA/Iron [ Plus Iron] 1 each PO DAILY tablet [Rx] Witch Carlota [Tucks] 1 pad TOP ASDIRECTED PRN pad 06/18/18 [Rx] Patient Handouts: Vaginal Delivery, Care After, Care of a Perineal Tear Referrals: Giancarlo Hahn MD [Primary Care Provider] - (Please follow-up in 2-3 weeks for routine visit or earlier as needed.) - Discharge Summary/Plan Comment DC Time >30 min.: No - Patient Data Vitals - Most Recent: Last Vital Signs Temp 36.5 C 06/18/18 04:11 Pulse 65 06/18/18 04:11 Resp 14 06/18/18 04:11 BP 121/77 06/18/18 04:11 Pulse Ox 100 06/18/18 04:11 Weight - Most Recent: 107.955 kg I&O - Last 24 hours: Intake & Output 06/17/18 06/18/18 06/18/18 22:59 06:59 14:59 Intake Total 320 Balance 320 Lab Results - Last 24 hrs: Laboratory Results - last 24 hr 06/16/18 Range/Units 23:45 RPR Non-reactive (NONREACTIVE) Med Orders - Current: Current Medications Acetaminophen (Tylenol) 650 mg PO Q6H PRN PRN Reason: mild pain or fever Benzocaine/Menthol (Dermoplast Pain Relief [place]) 0 gm TOP ASDIRECTED PRN PRN Reason: Perineal Comfort Measure Last Admin: 06/17/18 09:48 Dose: 1 applic Docusate Sodium (Colace) 100 mg PO BID PRN PRN Reason: Constipation Emollient Ointment (Lansinoh Hpa) 0 gm TOP ASDIRECTED PRN PRN Reason: Sore Nipples Hydrocortisone Acetate (Anucort-Hc) 25 mg RECTAL BID PRN PRN Reason: Hemorrhoid pain Oxytocin/Lactated Ringer's (Pitocin In Lr 10 Units/1,000 Ml) 10 unit in 1,000 mls @ 100 mls/hr IV TITRATE FELIPE; Protocol Last Admin: 06/17/18 09:53 Dose: 250 ml/hr, 250 mls/hr Ibuprofen (Motrin) 600 mg PO Q6H PRN PRN Reason: Mild pain or fever Last Admin: 06/18/18 08:48 Dose: 600 mg Magnesium Hydroxide (Milk Of Magnesia) 30 ml PO BEDTIME PRN PRN Reason: Constipation Prenat Multivit/Meat Slicer/Iron/Folic Ac ( Plus Iron) 1 each PO DAILY FELIPE Last Admin: 06/18/18 08:48 Dose: 1 each Witch [place] (Tucks) 1 pad TOP ASDIRECTED PRN PRN Reason: Hemorrhoid pain Last Admin: 06/17/18 09:48 Dose: 1 applic Discontinued Medications Acetaminophen (Tylenol) 650 mg PO Q4H PRN PRN Reason: Pain (mild 1-3) Last Admin: 06/17/18 06:28 Dose: 650 mg Diphenhydramine HCl (Benadryl) 25 mg IVPUSH Q6H PRN PRN Reason: pruritis Ephedrine Sulfate (Ephedrine Sulfate) 5 mg IVPUSH ASDIRECTED PRN PRN Reason: Hypotension Fentanyl (Sublimaze) 100 mcg EPIDUR Q3H PRN PRN Reason: Pain Last Admin: 06/17/18 05:48 Dose: 100 mcg Fentanyl/Bupivacaine HCl (Bakdfjed-Kfyex-Vl 2 Mcg/Ml-0.125%) 100 ml EP ASDIRECTED [facility] Last Admin: 06/17/18 05:48 Dose: 100 ml Ampicillin Sodium 2 gm/ Sodium (Chloride) 100 mls @ 200 mls/hr IV ONETIME ONE Stop: 06/16/18 23:50 Last Admin: 06/17/18 01:30 Dose: 200 mls/hr Ampicillin Sodium 1 gm/ Sodium (Chloride) 100 mls @ 200 mls/hr IV Q4H FELIPE Last Admin: 06/17/18 05:30 Dose: 200 mls/hr Lactated Ringer's (Ringers, Lactated) 1,000 mls @ 100 mls/hr IV ASDIRECTED [facility] Last Admin: 06/17/18 07:45 Dose: 100 mls/hr Oxytocin/Lactated Ringer's (Pitocin In Lr 10 Units/1,000 Ml) 10 unit in 1,000 mls @ 12 mls/hr IV TITRATE FELIPE; Protocol Last Titration: 06/17/18 08:34 Dose: 500 mls/hr Oxytocin/Lactated Ringer's (Pitocin In Lr 10 Units/1,000 Ml) 10 unit in 1,000 mls @ 500 mls/hr IV .CONTINUOUS FELIPE Ampicillin Sodium 1 gm/ Sodium (Chloride) 100 mls @ 200 mls/hr IV Q4H [facility] Influenza Virus Vaccine (Fluzone Quad [id number] Syringe) 60 mcg IM .ONCE ONE Stop: 06/18/18 08:36 Last Admin: 06/18/18 08:50 Dose: 60 mcg Measles/Mumps/Rubella Vaccine Live (M-M-R Ii Vaccine) 0.5 ml SUBCUT .ONCE ONE Stop: 06/17/18 09:24 Last Admin: 06/18/18 08:38 Dose: Not Given Measles/Mumps/Rubella Vaccine Live (M-M-R Ii Vaccine) 0.5 ml SUBCUT .ONCE ONE Stop: 06/18/18 08:37 Last Admin: 06/18/18 08:53 Dose: 0.5 ml Nalbuphine HCl (Nubain) 10 mg IVPUSH Q2H PRN PRN Reason: pain Ondansetron HCl (Zofran) 4 mg IVPUSH Q4H PRN PRN Reason: Nausea/Vomiting Sodium Chloride (Saline Flush) 10 ml FLUSH ASDIRECTED PRN PRN Reason: Keep Vein Open
[2018-06-18 09:33] VITALS: BP 126/94
== END 2018-06-18 12:00 | disposition home or self-care (01) | DRG 807 ==
LOC: JD.OB 22:32 → JD.OBCHECK 22:32 → JD.OB 23:21 → OBSVTOIN 06-17 08:32 → JD.OB 06-17 08:33
PROVIDERS: ADMIT Obstetrics & Gynecology; ATTEND Obstetrics & Gynecology
PROC: 0KQM0ZZ Repair Perineum Muscle, Open Approach (ICD-10-PCS; principal; 2018-06-17)
PROC: 10E0XZZ Delivery of Products of Conception, External Approach (ICD-10-PCS; principal; 2018-06-17)
PROC: 3E0R3BZ Introduction of Anesthetic Agent into Spinal Canal, Percutaneous Approach (ICD-10-PCS; 2018-06-17)
PROC: 00HU33Z Insertion of Infusion Device into Spinal Canal, Percutaneous Approach (ICD-10-PCS; 2018-06-17)
PROC: 3E0234Z Introduction of Serum, Toxoid and Vaccine into Muscle, Percutaneous Approach (ICD-10-PCS; 2018-06-18)
PROC: 3E02340 Introduction of Influenza Vaccine into Muscle, Percutaneous Approach (ICD-10-PCS; 2018-06-18)
DX: O48.0 Post-term pregnancy (principal); Z37.0 Single live birth; O99.824 Streptococcus B carrier state complicating childbirth; O70.1 Second degree perineal laceration during delivery; Z3A.40 40 weeks gestation of pregnancy; O99.344 Other mental disorders complicating childbirth; F41.9 Anxiety disorder, unspecified; F32.9 Major depressive disorder, single episode, unspecified; Z87.74 Personal history of (corrected) congenital malformations of heart and circulatory system; Z23 Encounter for immunization
CPT/HCPCS: 36415; 51702; 59025; 59409; 80053; 82570; 84156; 85025; 86592; 90686; 90707; A9270-GY; G0008; G0010; J0290; J2590; J3010; J3490; J7030; J7120